=== PATIENT | female | born 1955 | race Caucasian/White ===

== ENCOUNTER 2016-06-13 11:00 | Observation (INO) | payer OTHER ==
[2016-06-13] MEDS ORDERED: NS 1,000 ML IV ONE (11:10)
--- NOTE | 2016-06-13 11:36 | CPEKG ---
Heart Rate: 82 RR Interval: 732 P-R Interval: 124 QRSD Interval: 70 QT Interval: 384 QTC Interval: 449 P [place]: 42 QRS [place]: -31 T Wave [place]: 21 EKG Severity - BORDERLINE ECG - EKG Impression: SINUS RHYTHM EKG Impression: LEFT AXIS DEVIATION EKG Impression: BORDERLINE R WAVE PROGRESSION, ANTERIOR LEADS EKG Impression: BORDERLINE T ABNORMALITIES, ANTERIOR LEADS Electronically Signed By: Kathy Stroud 13-Jun-2016 12:40:45
[2016-06-13 12:07] LABS: % IMMATURE GRANULYOCYTES 0.3 % (0.0-1.1); ABSOLUTE IMMATURE GRANULOCYTES 0.02 10^3/uL (0.00-0.10); ADD DIFF? NO; ADD MORPH? NO; ADD SCAN? NO; ATYPICAL LYMPHOCYTE FLAG 0 (0-99); FRAGMENT RBC FLAG 0 (0-99); HEMATOCRIT 42.1 % (38.0-47.0); HEMOGLOBIN 14.2 g/dL (12.6-16.3); LEFT SHIFT FLG 0 (0-99); LIPEMIA HEMOLYSIS FLAG 80 (0-99); MEAN CELL HEMOGLOBIN 29.9 pg (27.9-34.1); MEAN CELL HEMOGLOBIN CONCENTR. 33.7 g/dL (32.4-36.7); MEAN CELL VOLUME 88.6 fL (81.5-99.8); MEAN PLATELET VOLUME 9.6 fL (8.7-11.7); PLATELET CLUMPS FLAG 10 (0-99); PLATELET COUNT 237 10^3/uL (150-400); RED BLOOD CELL COUNT 4.75 10^6/uL (4.18-5.33); RED CELL DISTRIBUTION WIDTH 12.8 % (11.5-15.2)
[2016-06-13 12:18] LABS: INR 0.94 (0.83-1.16); PROTIME(PATIENT) 12.5 SEC (12.0-15.0)
[2016-06-13 12:19] LABS: APTT 28.4 SEC (23.0-38.0)
[2016-06-13 12:37] LABS: ANION GAP 10 mEq/L (8-16); CALCIUM 9.2 mg/dL (8.5-10.4); CARBON DIOXIDE 24 mEq/l (22-31); CHLORIDE 109 mEq/L (97-110); CREATININE 0.6 mg/dL (0.6-1.0); GLOMERULAR FILTRATION RATE > 60; GLUCOSE 80 mg/dL (70-100); POTASSIUM 4.3 mEq/L (3.5-5.2); SODIUM 143 mEq/L (134-144)
[2016-06-13] MEDS ORDERED: MIDAZOLAM 2 MG/2 ML VIAL ONE (13:10)
[2016-06-13] MEDS ORDERED: LIDOCAINE 1% 30 ML SDV ONE (13:11)
[2016-06-13] MEDS ORDERED: ISOPROTERENOL HCL 0.2 MG/ML 5ML AMP ONE (13:11)
[2016-06-13] MEDS ORDERED: BUPIVACAINE 0.5% 30 ML SDV ONE (13:12)
[2016-06-13] MEDS ORDERED: HEPARIN 10,000 UNIT/10 ML MDV ONE (13:12)
[2016-06-13] MEDS ORDERED: fentaNYL 250 MCG/5 ML INJ ONE (13:30)
[2016-06-13] MEDS ORDERED: PROPOFOL/EMULSION 500 MG/50 ML BOTTLE IV ONE ×2 (13:31→13:57)
[2016-06-13] MEDS ORDERED: PHENYLEPHRINE HCL 100 MCG/ML SYR ONE (13:56)
[2016-06-13] MEDS ORDERED: epHEDrine SULFATE 10 MG/ML SYR ONE (13:56)
[2016-06-13] MEDS ORDERED: ONDANSETRON 4 MG/2 ML VIAL ONE (15:04)
[2016-06-13] MEDS ORDERED: DEXAMETHASONE 4 MG/ML VIAL ONE (15:04)
[2016-06-13] MEDS ORDERED: SUGAMMADEX SODIUM 200 MG/2 ML VIAL IVP ONE (15:08)
[2016-06-13] MEDS ORDERED: OXYCODONE/APAP 5/325 TAB PO PRN (15:09)
[2016-06-13] MEDS ORDERED: ACETAMINOPHEN 325 MG TAB PO PRN (15:09)
[2016-06-13] MEDS ORDERED: ONDANSETRON 4 MG/2 ML VIAL IVP PRN (15:09)
--- NOTE | 2016-06-13 15:09 | EPPROC ---
Electrophysiology Procedure Note: ELECTROPHYSIOLOGIC STUDY AND CATHETER MEDIATED ABLATION OF SLOW/FAST AV DAVE REENTRY TACHYCARDIA PROCEDURES PERFORMED: 90863-87 EP evaluation with RA/RV/LA pace/record, with arrhythmia induction 52486-47 EP evaluation with RA/RV pace record, insert/reposition catheter, with arrhythmia induction 30568 Intracardiac catheter ablation, SVT arrhythmogenic focus 38301 3D mapping Fluoroscopy INDICATION: SVT PROCEDURE: Catheters & Anesthesia: The patient arrived in the Electrophysiology Laboratory in the fasting state. The right clavicular region, right groin, and left groin area were prepped and draped in the usual sterile manner. Anesthesiologist Dr. Apolonia Mcclain administered general anesthesia. Appropriate non-invasive blood pressure, pulse oximetry and end-tidal CO2 monitoring was established. All catheters were placed percutaneously using the modified Seldinger technique , and advanced into position under fluoroscopic guidance. One #6 Ghanaian hexapolar non-deflectable electrode catheter was inserted into the right atrial appendage via the left femoral vein (2mm spacing; except the proximal ring which was 25cm from the tip - used for unipolar recordings). One #7 Ghanaian deflectable octapolar electrode catheter was advanced to the His-bundle position via the left femoral vein (2mm spacing). One #7 Ghanaian deflectable quadrapolar catheter was advanced to the anteroseptal right ventricle via the right femoral vein. One #7 Ghanaian deflectable catheter with 10 pairs of electrodes was placed via the right femoral vein into the coronary sinus. Heparin was given to keep ACT > 200 s. Programmed stimulation was performed from the right atrium, right ventricle and coronary sinus (left atrium). Parahisian pacing demonstrated constant H-A interval with changing V-A intervals and stimulus-A intervals during capture and loss of capture of proximal RBB proving retrograde conduction over AV node. AVNRT was induced easily after bolus of isoproterenol 2 mcg/min. Ventricular extrastimuli delivered during tachycardia without altering antegrade His bundle activation did not advance next atrial potential, indicating that the tachycardia was not utilizing an accessory pathway for retrograde conduction. VA interval was 15 ms. Post entrainment of the tachycardia from the ventricle, there was VAHV response. Mapping of the right atrium and coronary sinus during AVNRT identified earliest atrial activation above the tendon of Alexandre at a level slightly posterior to the level of the His bundle, consistent with retrograde conduction over the fast AV dave pathway. A #8 Ghanaian deflectable quadrapolar electrode catheter (2mm-5mm-2mm spacing) with 4 mm tip electrode and sensor for the 3D mapping Carto system was advanced to the right atrium. 3 D mapping of the inter-atrial septum and coronary sinus was performed and location of the AV node was marked. A SL2 sheath was used. RF applications were delivered to the region between the tricuspid annulus and the coronary sinus ostium, at the level of the upper edge of the coronary sinus ostium. Radiofrequency applications were also delivered along the roof of the proximal coronary sinus. Junctional rhythm occurred during all of the RF applications. Programmed stimulation was continued post ablation at baseline and during graded doses of isoproterenol upto 4mcg/min. Sustained AVNRT was not inducible. There were no echo beats. Nonsustained atrial tachycardia, 5 seconds , 330 ms was seen x 1, not targeted for ablation. The catheters were removed. The long sheath was changed to a short 9 Fr sheath. The patient was transferred to the cardiovascular holding area in stable condition. Vascular access sheaths were removed in the holding area. There were no apparent complications. Results: A. Spontaneous Intervals: Pre ablation SCL 880 ms AH 60 ms HV 40 ms Post ablation SCL 710 ms AH 45 ms HV 40 ms B. Antegrade AV dave function (decremental pacing) Pre ablation FPERP 390 ms SPERP 340 ms WBB CL 330 ms then SVT Post ablation FPERP 360 ms WBB CL 350 ms C. Retrograde AV dave function (decremental pacing) Pre ablation FPERP 360 ms WBB CL 350 ms D. Arrhythmias: Sustained slow/fast AVNRT Cycle length 300 ms, AH interval 260 ms, APARICIO interval 40 ms VA interval 15 ms CONCLUSIONS 1. 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 ( Slow/fast AVNRT). 2. Successful ablation of the slow AV dave pathway with elimination of 1:1 antegrade conduction over the slow AV dave pathway, all retrograde conduction over the slow AV dave pathway and the inducibility of AVNRT. 3. No complications. Patient Problems: Problems Problem Status Diagnosed Supraventricular tachycardia Acute TIA (transient ischemic attack) Acute
--- NOTE | 2016-06-13 15:30 | CPEKG ---
Heart Rate: 92 RR Interval: 652 P-R Interval: 144 QRSD Interval: 72 QT Interval: 376 QTC Interval: 466 P [place]: 66 QRS [place]: -11 T Wave [place]: 45 EKG Severity - BORDERLINE ECG - EKG Impression: SINUS RHYTHM EKG Impression: BORDERLINE T ABNORMALITIES, ANTERIOR LEADS Electronically Signed By: Kathy Stroud 13-Jun-2016 16:29:39
[2016-06-13 16:33] LABS: ANION GAP 9 mEq/L (8-16); CARBON DIOXIDE 22 mEq/l (22-31); CHLORIDE 112 mEq/L (97-110); CREATININE 0.6 mg/dL (0.6-1.0); GLOMERULAR FILTRATION RATE > 60; GLUCOSE 82 mg/dL (70-100); MAGNESIUM 1.9 mg/dL (1.6-2.3); POTASSIUM 3.7 mEq/L (3.5-5.2); SODIUM 143 mEq/L (134-144)
[2016-06-14 05:09] LABS: % IMMATURE GRANULYOCYTES 0.3 % (0.0-1.1); ABSOLUTE IMMATURE GRANULOCYTES 0.02 10^3/uL (0.00-0.10); ADD DIFF? NO; ADD MORPH? NO; ADD SCAN? NO; ATYPICAL LYMPHOCYTE FLAG 0 (0-99); FRAGMENT RBC FLAG 0 (0-99); HEMATOCRIT 41.4 % (38.0-47.0); HEMOGLOBIN 13.5 g/dL (12.6-16.3); LEFT SHIFT FLG 0 (0-99); LIPEMIA HEMOLYSIS FLAG 80 (0-99); MEAN CELL HEMOGLOBIN 29.9 pg (27.9-34.1); MEAN CELL HEMOGLOBIN CONCENTR. 32.6 g/dL (32.4-36.7); MEAN CELL VOLUME 91.6 fL (81.5-99.8); MEAN PLATELET VOLUME 9.9 fL (8.7-11.7); PLATELET CLUMPS FLAG 0 (0-99); PLATELET COUNT 237 10^3/uL (150-400); RED BLOOD CELL COUNT 4.52 10^6/uL (4.18-5.33); RED CELL DISTRIBUTION WIDTH 13.1 % (11.5-15.2)
[2016-06-14 05:24] LABS: INR 0.98 (0.83-1.16); PROTIME(PATIENT) 12.9 SEC (12.0-15.0)
[2016-06-14 05:31] LABS: ANION GAP 5 mEq/L (8-16); CALCIUM 8.8 mg/dL (8.5-10.4); CARBON DIOXIDE 26 mEq/l (22-31); CHLORIDE 108 mEq/L (97-110); CREATININE 0.7 mg/dL (0.6-1.0); GLOMERULAR FILTRATION RATE > 60; GLUCOSE 99 mg/dL (70-100); POTASSIUM 5.1 mEq/L (3.5-5.2); SODIUM 139 mEq/L (134-144)
[2016-06-14 05:43] LABS: TROPONIN I 0.166 ng/mL (0-0.034)
[2016-06-14 07:43] VITALS: BP 125/81; PULSE 75; RESP 12; TEMP 98; O2SAT 94
[2016-06-14] MEDS ORDERED: ATORVASTATIN CALCIUM 40 MG TAB PO SCH (09:00)
[2016-06-14] MEDS ORDERED: ASPIRIN 81 MG CHEWABLE TAB PO SCH (09:00)
--- NOTE | 2016-06-14 09:35 | CPEKG ---
Heart Rate: 79 RR Interval: 759 P-R Interval: 140 QRSD Interval: 70 QT Interval: 384 QTC Interval: 441 P [place]: 53 QRS [place]: -8 T Wave [place]: 41 EKG Severity - NORMAL ECG - EKG Impression: SINUS RHYTHM Electronically Signed By: Kathy Stroud 14-Jun-2016 09:51:35
--- NOTE | 2016-06-14 09:45 | ECHO ---
[id number] + + [address] : : [place] [address] : : [phone] + + Adult Echocardiographic Report + ---+ :Name: DANYELLE MAYES David Date: 06/14/2016 08:39 AM : : Hospital Admission Number: [id number] Location: 222: :: 1955 Gender: Female Height: 64 in : :Age: 61 yrs Race: WH Weight: 171 lb : :Reason For Study: Eval LV FX : : BSA: 1.8 meters2 : :History: Post Ablation : + ---+ MMode/2D Measurements & Calculations IVSd: 0.88 cm LVIDd: 4.5 cm FS: 43.8 % Ao root diam: 3.2 cm LVPWd: 0.95 cm LVIDs: 2.6 cm EDV(Teich): 94.8 ml ACS: 1.6 cm ESV(Teich): 23.6 ml LA dimension: 2.8 cm EF(Teich): 75.1 % Normal Measurement Values: + + :LVIDd (3.5-5.7cm) IVSd (0.6-1.1cm) LVPWd (0.6-1.1cm) Aortic Root (2.0-3.7cm)Left Atrium (1.5-4.0cm): :LV Vol(d) (76-115ml) LV Vol(s) (29-48ml) Ejec Fraction (50-65%)PV Alex (0.6- 1.2m/s) TV Alex (0.4-1.0m/s) : :MV E Alex (0.8-1.0m/s)MV A Alex (0.3-1.0m/s)LVOT Alex (0.7-1.2m/s) Asc Ao Alex ( 0.9-1.8m/s) : + + Doppler Measurements & Calculations MV E max alex: Ao V2 max: LV V1 max: TR max alex: 115.7 cm/sec 198.2 cm/sec 110.2 cm/sec 266.0 cm/sec MV A max alex: Ao max PG: LV V1 max PG: TR max P.4 cm/sec 15.7 mmHg 4.9 mmHg 28.3 mmHg MV E/A: 1.0 RAP systole: 5.0 mmHg RVSP(TR): 33.3 mmHg Left Ventricle The left ventricle is normal in size. There is normal left ventricular wall thickness. The left ventricular ejection fraction is normal. There is Doppler evidence for diastolic dysfunction. Ejection Fraction = 75%. The left ventricular ejection fraction is calculated at 75.1 %. The left ventricular wall motion is normal. Right Ventricle The right ventricle is normal in size and function. Atria The left atrial size is normal. Right atrial size is normal. Mitral Valve The mitral valve is normal in structure and function. There is trace mitral regurgitation. Tricuspid Valve The tricuspid valve is normal in structure and function. There is trace tricuspid regurgitation. Right ventricular systolic pressure is normal. Aortic Valve The aortic valve is bicuspid. There is no aortic stenosis. There is no aortic insufficiency. Pulmonic Valve The pulmonic valve is not well visualized. There is no pulmonic valvular regurgitation. Great Vessels The ascending aorta is dilated at 3.6cm. Pericardium/Pleural There is no pericardial effusion. Conclusion A complete two-dimensional transthoracic echocardiogram was performed (2D, M-mode, Doppler and color flow Doppler). (1) Left ventricular systolic ejection fraction was normal (75%) - normal wall motion (2) No left ventricular hypertrophy (3) Diastolic dysfunction was present (4) Normal right ventricular size and function (5) Normal atrial dimensions (6) Grossly normal mitral valve with physiologic mitral regurgitation (7) Possible bicuspid aortic valve (images were not clear) without overt insufficiency or sclerosis noted (8) Grossly normal tricuspid valve - RVSP was within normal limits (9) Poor visualization of the pulmonic valve (10) No pericardial effusion (11) In comparison to prior echocardiogram, no clear changes noted - aortic valve was not clearly imaged in prior study from Apr 2016. (12) Consider HODAN to better visualize the aortic valve Final Reading Physician: Beena Marroquin signed on 06/14/2016 09:44 AM Ordering Physician: Guille Staples Performed By: Jony Coronel, RDCS
--- NOTE | 2016-06-14 11:02 | GDS ---
[f rep st] DISCHARGE SUMMARY DISCHARGE DIAGNOSES: 1. AV dave reentrant tachycardia, status post ablation. 2. Possible bicuspid aortic valve with ascending thoracic aorta measuring 3.6 cm. 3. Hyperlipidemia. 4. Hypertension. HOSPITAL COURSE: For a detailed H and P, please see prior dictation. Briefly, the patient is a 61-y ear-old female with a history of SVT with associated lightheadedness. She was started on metoprolol but continued to have breakthrough episodes of SVT. Ultimately, she decided she would like to procee d with an EP study and ablation. This was performed by Dr. Guille Staples on June 13, 2016. She was identified to have AV dave reentrant tachycardia, which was ablated. Her procedure was uncomplicate d. The following morning, she denied any palpitations or chest discomfort. She was monitored on tel emetry and remained in normal sinus rhythm. Her EKG the day of discharge revealed normal sinus rhyth m with T-wave flattening in the inferior and anterior leads, which is unchanged. Her troponin peaked at 0.166. An echocardiogram revealed preserved LV function without any evidence of pericardial effu desi. There is a question as to whether or not she has a bicuspid aortic valve. Her son does have a history of a bicuspid aortic valve. PHYSICAL EXAMINATION: GENERAL: Patient appears in no acute distress. VITAL SIGNS: Blood pressure 125/81, heart rate 75, oxygen saturation of 94% on room air, afebrile. LUNGS: Clear to auscultation . No wheezes, rhonchi, or crackles auscultated. CARDIAC: Regular rate and rhythm without any murmu rs, rubs, or gallops appreciated. EXTREMITIES: Groins bilaterally where access was obtained for the EP study and ablation are clean and intact without any evidence of infection or hematoma. DISCHARGE MEDICATIONS: Metoprolol XL 50 mg daily, Vagifem Sunday and Sunday, Lipitor 40 mg daily, as pirin 81 mg daily. PLAN: The patient is currently stable and ready for discharge home. She has been given groin precau tions. She will remain on aspirin for a minimum of 6 weeks. She is scheduled to follow up with Dr. Guille Staples in 1 month. There is concern as to whether or not she has a bicuspid aortic valve, and th erefore she will need a HODAN. We will plan to have a nurse from our office call her to schedule this within the next 2-4 weeks. She was started on Lipitor a month ago and does not currently have a PCP. She will need to either schedule a consult with a PCP or follow up with Cardiology to recheck fasti ng lipid profile and liver function tests within the next 1-2 months. /[id number]/MODL
== END 2016-06-14 11:18 | disposition home or self-care (01) ==
LOC: FCATH 11:00 → F2W 15:09
PROVIDERS: ADMIT Internal Medicine Cardiovascular Disease; ATTEND Internal Medicine Cardiovascular Disease
PROC: 02K83ZZ Map Conduction Mechanism, Percutaneous Approach (ICD-10-PCS; principal; 2016-06-13)
PROC: 02573ZZ Destruction of Left Atrium, Percutaneous Approach (ICD-10-PCS; principal; 2016-06-13)
PROC: 5A1223Z Performance of Cardiac Pacing, Continuous (ICD-10-PCS; principal; 2016-06-13)
PROC: 02H73MZ Insertion of Cardiac Lead into Left Atrium, Percutaneous Approach (ICD-10-PCS; principal; 2016-06-13)
PROC: 4A023FZ Measurement of Cardiac Rhythm, Percutaneous Approach (ICD-10-PCS; principal; 2016-06-13)
PROC: 025K3ZZ Destruction of Right Ventricle, Percutaneous Approach (ICD-10-PCS; principal; 2016-06-13)
PROC: 02563ZZ Destruction of Right Atrium, Percutaneous Approach (ICD-10-PCS; principal; 2016-06-13)
DX: I47.1 Supraventricular tachycardia (principal); I10 Essential (primary) hypertension; E78.5 Hyperlipidemia, unspecified
CPT/HCPCS: 93005; 93306; 93613; 93621; 93623; 93653; C1730; C1731; C1732; G0378; C1893; J1100; J1644; J2250; J2370; J2405; J2704; J3010

== ENCOUNTER 2016-06-26 06:30 | Day surgery (SDC) | payer OTHER ==
[2016-06-26] MEDS ORDERED: MIDAZOLAM 2 MG/2 ML VIAL IVP ONE (06:35)
[2016-06-26] MEDS ORDERED: fentaNYL 100 MCG/2 ML INJ IVP ONE (06:35)
[2016-06-26] MEDS ORDERED: BENZOCAINE UNIT DOSE SPRAY HURRICAINE MM ONE (06:35)
[2016-06-26] MEDS ORDERED: NS 1,000 ML IV ONE (06:35)
[2016-06-26] MEDS ORDERED: LIDOCAINE 2% 100 MG/5 ML SYR IVP ONE (08:46)
[2016-06-26] MEDS ORDERED: PROPOFOL 200 MG/20 ML VIAL ONE (08:46)
[2016-06-26] MEDS ORDERED: SUCCINYLCHOLINE CHLORIDE*ANESTHESIA ONLY*200 MG/10 ML SYR IVP ONE (08:47)
--- NOTE | 2016-06-27 08:37 | ECHO ---
[id number] + + [address] : : [place] [address] : : [phone] + + Transesophageal Echocardiographic Report + ---+ :Name: DANYELLE MAYESglenroy Date: 06/26/2016 08:43 AM : : Hospital Admission Number: [id number] Location: [facility]: :: 1955 Gender: Female : :Age: 61 yrs Race: WH : :Reason For Study: Eval for bicuspid AV : + ---+ Left Ventricle Left ventricular systolic function is normal. Atria Injection of contrast documented no interatrial shunt. No thrombus is detected in the left atrial appendage. Mitral Valve There is trace mitral regurgitation. Tricuspid Valve There is mild tricuspid regurgitation. Aortic Valve AV is bicuspid with fused raphe. Trace aortic regurgitation. Pulmonic Valve The pulmonic valve is normal in structure and function. There is no pulmonic valvular regurgitation. Vessels Mildly dilated ascending aorta. Conclusion A 2D transesophageal echocardiogram with color flow Doppler was performed. Left ventricular systolic function is normal. Injection of contrast documented no interatrial shunt. No thrombus is detected in the left atrial appendage. There is trace mitral regurgitation. There is mild tricuspid regurgitation. AV is bicuspid with fused raphe. Trace aortic regurgitation. Mildly dilated ascending aorta. Final Reading Physician: Guille Staples MD electronically signed on 06/27/2016 08:35 AM Ordering Physician: Guille Staples Performed By: Nida Brennan RDCS
== END 2016-06-26 10:34 | disposition home or self-care (01) ==
LOC: FCATH 06:30
PROVIDERS: ATTEND Internal Medicine Cardiovascular Disease
PROC: B246ZZ4 Ultrasonography of Right and Left Heart, Transesophageal (ICD-10-PCS; principal; 2016-06-26)
DX: Q23.1 Congenital insufficiency of aortic valve (principal)
CPT/HCPCS: J0330; J2001; J2250; J2704; J3010

== ENCOUNTER → 2016-06-29 | Outpatient (CLI) | payer OTHER ==
[~2016-06-29] MED LIST: IOPAMIDOL (ISOVUE 370) 100 ML BTL IV ONE
== END ==
LOC: FIMAGING 14:09
PROVIDERS: ATTEND Internal Medicine Cardiovascular Disease
DX: I77.819 Aortic ectasia, unspecified site (principal)
CPT/HCPCS: Q9967

== ENCOUNTER → 2017-01-23 | Outpatient (CLI) | payer OTHER | LOC: FIMAGING 07:27 | PROVIDERS: ATTEND Nurse Practitioner Women's Health | DX: Z12.31 Encounter for screening mammogram for malignant neoplasm of breast (principal) | CPT/HCPCS: G0202 ==

== ENCOUNTER → 2018-02-26 | Outpatient (CLI) | payer OTHER | LOC: FIMAGING 11:47 | PROVIDERS: ATTEND Nurse Practitioner Women's Health | DX: Z12.31 Encounter for screening mammogram for malignant neoplasm of breast (principal) ==